=== PATIENT | female | born 1965 | race Caucasian/White ===

== ENCOUNTER 2018-12-19 02:02 | Emergency (ER) | payer MEDICAID ==
[~2018-12-19] VITALS: Ht 149.9 cm; Wt 68.0 kg
[2018-12-19 02:03] VITALS: BP_SYST 143
[2018-12-19] MEDS: MORPHINE 4 MG/ML INJ. SYRINGE IVP ONE (02:25)
[2018-12-19] MEDS: ONDANSETRON HCL 4 MG/2 ML VIAL IVP ONE (02:25)
[2018-12-19] MEDS: NACL 0.9% 1,000 ML IV ONE (02:26)
[2018-12-19 02:32] LABS: BASOPHILS # (AUTO) 0.1 K/uL (0.0-0.2); BASOPHILS % (AUTO) 0.7 % (0.0-2.0); EOSINOPHILS % (AUTO) 0.1 % (0.0-4.0); HEMATOCRIT 40.7 % (36-48); HEMOGLOBIN 13.2 g/dL (12.0-16.0); LYMPHOCYTES # (AUTO) 1.1 K/uL (1.0-5.5); LYMPHOCYTES % (AUTO) 7.1 % (20.5-51.5); MEAN CORPUSCULAR HEMOGLOBIN 28 pg (27-31); MEAN CORPUSCULAR HGB CONC 32 % (32-36); MEAN CORPUSCULAR VOLUME 86 fL (79.0-98.0); MONOCYTES # (AUTO) 0.9 K/uL (0.0-1.0); MONOCYTES % (AUTO) 5.4 % (1.7-9.3); NEUTROPHILS % (AUTO) 86.7 % (40.0-70.0); PLATELET COUNT (AUTO) 335 K/uL (130-430); RED BLOOD CELL COUNT(AUTO) 4.72 MIL/uL (4.2-6.2); RED CELL DISTRIBUTION WIDTH 16.1 % (9.0-15.0); WHITE BLOOD COUNT (AUTO) 16.1 K/uL (4.8-10.8)
[2018-12-19 02:52] LABS: ANION GAP 13 (5-15); CALCIUM 9.8 mg/dL (8.4-11.0); CHLORIDE 102 mmol/L (98-107); GLUCOSE 359 mg/dL (70-99); SODIUM SERUM 140 mmol/L (136-145); UREA NITROGEN, BLOOD 20 mg/dL (8-21)
[2018-12-19 02:59] LABS: ALANINE AMINOTRANSFERASE 31 U/L (12-78); ALBUMIN 3.7 g/dL (3.4-4.8); ASPARTATE AMINOTRANSFERASE 13 U/L (10-37); LIPASE 154 U/L (73-393); TOTAL BILIRUBIN 0.5 mg/dL (0.0-1.0)
[2018-12-19 03:00] LABS: GFR AFRICAN AMERICAN 96 mL/min (>90); POTASSIUM 2.6 mmol/L (3.5-5.1)
[2018-12-19] MEDS: INSULIN REGULAR, HUMAN 10 UNITS/0.1 ML INJ IVP ONE (03:37)
[2018-12-19 03:42] LABS: BILIRUBIN,URINE NEGATIVE (NEGATIVE); BLOOD, URINE NEGATIVE (NEGATIVE); CLARITY/URINE CLEAR (CLEAR); COLOR,URINE YELLOW (YELLOW); GLUCOSE,URINE 3+ (NEGATIVE); KETONES,URINE 2+ (NEGATIVE); LEUKOCYTE ESTERASE ,URINE NEGATIVE (NEGATIVE); NITRITE, URINE NEGATIVE (NEGATIVE); PROTEIN URINE NEGATIVE (NEGATIVE); UROBILINOGEN,URINE 0.2 (0.2-1.0)
[2018-12-19 03:44] LABS: ACETONE, SERUM POSITIVE (NEGATIVE)
[2018-12-19] MEDS: POTASSIUM CHLORIDE 20 MEQ TAB.PRT.SR PO ONE (04:26)
[2018-12-19 05:00] VITALS: BP_SYST 141
== END 2018-12-19 05:00 | disposition home or self-care (01) ==
LOC: SED 02:02
DX: E87.6 Hypokalemia (principal); E11.65 Type 2 diabetes mellitus with hyperglycemia; R10.10 Upper abdominal pain, unspecified; R11.10 Vomiting, unspecified; R19.7 Diarrhea, unspecified; I10 Essential (primary) hypertension; Z90.89 Acquired absence of other organs
CPT/HCPCS: 36415; 74176; 80053; 81003; 82009; 83690; 85025; 96361; 96374; 96375; 99284; J1815; J2270; J2405; J7030

== ENCOUNTER 2019-06-06 17:59 | Emergency (ER) | payer MEDICAID ==
[~2019-06-06] VITALS: Ht 157.5 cm; Wt 68.0 kg
[2019-06-06 18:13] VITALS: BP_SYST 122
--- NOTE | 2019-06-06 18:17 | NUR ---
Patient triaged and placed in waiting room. VSS and patient appears in no acute distress at this time. Accompanied by son, awaiting available bed, and MD notified of need for MSE.
--- NOTE | 2019-06-06 19:24 | NUR ---
Patient to ER bed 4 to gown for evaluation. Side rails up. Report given to Sanford SALAZAR.
--- NOTE | 2019-06-06 19:40 | NUR ---
Pt AAOx4 presents to ED via wheelchair c/o 01/26 pain to L hip s/p trip and fall yesterday. Denies KO. Pain increases when weight on L side. Pt able to move around house with walker. Pt taking ibuprofen with mild relief. NO other injuries/complaints per pt/noted. Will continue to monitor.
--- NOTE | 2019-06-06 19:45 | NUR ---
Pt taken to CT via wheelchair in stable condition
--- NOTE | 2019-06-06 20:00 | NUR ---
Pt to X-ray via W/C.
--- NOTE | 2019-06-06 20:05 | NUR ---
Pt returns from X-ray.
[2019-06-06] MEDS ORDERED: HYDROcodone/ACETAMIN 5-325 MG TAB (NORCO/ VICODIN) PO ONE (20:30)
--- NOTE | 2019-06-06 21:00 | NUR ---
RETURNED FROM CT SCAN OF PELVIS WITHOUT CONSTRAST AND XRAY OF LEFT HIP, STATES PAIN 10/10 ACHY TYPE PAIN, NORCO 5/325MG GIVEN PO, SITTING QUIETLY ON SIDE OF GURNEY WITH SON @ SIDE.
--- NOTE | 2019-06-06 22:47 | NUR ---
Patient given written and verbal discharge instructions and verbalizes understanding. ER MD discussed with patient the results and treatment provided. Patient in stable condition. ID arm band removed. Rx of Stuart and Ibuprofen given. Patient educated on pain management and to follow up with PMD. Pain Scale 4/10. Opportunity for questions provided and answered. Medication side effect fact sheet provided.
[2019-06-06 22:49] VITALS: BP_SYST 129
== END 2019-06-06 22:49 | disposition home or self-care (01) ==
LOC: SED 17:59
DX: S32.512A Fracture of superior rim of left pubis, initial encounter for closed fracture (principal); I10 Essential (primary) hypertension; E11.9 Type 2 diabetes mellitus without complications; W01.0XXA Fall on same level from slipping, tripping and stumbling without subsequent striking against object, initial encounter; Y93.89 Activity, other specified; Y92.89 Other specified places as the place of occurrence of the external cause; Y99.8 Other external cause status
CPT/HCPCS: 72192-TC; 73502; 99284

== ENCOUNTER 2021-04-01 09:31 | Emergency (ER) | payer MEDICAID ==
[~2021-04-01] VITALS: Ht 147.3 cm; Wt 55.8 kg
[2021-04-01 09:48] VITALS: BP_SYST 118
[2021-04-01] MEDS ORDERED: HYDROcodone/ACETAMIN 5-325 MG TAB (NORCO/ VICODIN) PO ONE (11:15)
[2021-04-01] MEDS ORDERED: KETOROLAC TROMETHAMINE 15 MG VIAL IVP ONE (11:15)
[2021-04-01] MEDS ORDERED: NACL 0.9% 1,000 ML IV ONE (11:15)
[2021-04-01 11:52] LABS: BASOPHILS # (AUTO) 0.1 K/uL (0.0-0.2); BASOPHILS % (AUTO) 0.4 % (0.0-2.0); EOSINOPHILS % (AUTO) 0.3 % (0.0-4.0); HEMATOCRIT 32.3 % (36-48); HEMOGLOBIN 10.7 g/dL (12.0-16.0); LYMPHOCYTES # (AUTO) 1.5 K/uL (1.0-5.5); LYMPHOCYTES % (AUTO) 12.5 % (20.5-51.5); MEAN CORPUSCULAR HEMOGLOBIN 30 pg (27-31); MEAN CORPUSCULAR HGB CONC 33 % (32-36); MEAN CORPUSCULAR VOLUME 91 fL (79.0-98.0); MONOCYTES # (AUTO) 0.7 K/uL (0.0-1.0); MONOCYTES % (AUTO) 5.8 % (1.7-9.3); PLATELET COUNT (AUTO) 283 K/uL (130-430); RED BLOOD CELL COUNT(AUTO) 3.57 MIL/uL (4.2-6.2); RED CELL DISTRIBUTION WIDTH 15.2 % (9.0-15.0); WHITE BLOOD COUNT (AUTO) 12.4 K/uL (4.8-10.8)
[2021-04-01 12:04] LABS: CALCIUM 8.9 mg/dL (8.4-11.0); CREATININE 0.48 mg/dL (0.55-1.30); POTASSIUM 3.2 mmol/L (3.5-5.1)
[2021-04-01 12:09] LABS: INR 0.9 (0.8-1.2); PROTHROMBIN TIME 9.4 SECS (9.5-12.5); TOTAL BILIRUBIN 0.6 mg/dL (0.0-1.0)
[2021-04-01] MEDS ORDERED: CLINDAMYCIN HCL 150 MG CAPSULE PO ONE (13:30)
[2021-04-01] MEDS ORDERED: CEPH250C PO (13:36)
[2021-04-01 14:02] VITALS: BP_SYST 118
== END 2021-04-01 14:04 | disposition home or self-care (01) ==
LOC: SED 09:31
DX: L03.113 Cellulitis of right upper limb (principal); E11.9 Type 2 diabetes mellitus without complications
CPT/HCPCS: 36415; 80053; 85025; 85379; 85610; 85730; 93971; 96361; 96374; 99284; J1885; J7030

== ENCOUNTER 2022-06-25 16:27 | Emergency (ER) | payer MEDICAID ==
[~2022-06-25] VITALS: Ht 149.9 cm; Wt 63.5 kg
[~2022-06-25 16:27] MED LIST: CEPH250C PO
[2022-06-25 17:14] VITALS: BP_SYST 142
--- NOTE | 2022-06-25 18:08 | NUR ---
ER at bedside examining patient.
[2022-06-25] MEDS ORDERED: VANCOMYCIN HCL 1,000 MG in NS 250 ML IV ONE (18:15)
[2022-06-25] MEDS ORDERED: VANCOMYCIN HCL 1000 MG/VIAL IV ONE (18:52)
--- NOTE | 2022-06-25 18:54 | NUR ---
IV INSERTED IN RIGHT A/C, 20 GAUGE CATHETER, GOOD BLOOD RETURN NOTED.
--- NOTE | 2022-06-25 19:15 | NUR ---
Received report at this time.
[2022-06-25] MEDS ORDERED: CEPH-548 PO (21:29)
[2022-06-25 21:40] VITALS: BP_SYST 133
--- NOTE | 2022-06-25 21:40 | NUR ---
Patient given written and verbal discharge instructions and verbalizes understanding. ER MD discussed with patient the results and treatment provided. Patient in stable condition. ID arm band removed. IV catheter removed intact and dressing applied, no active bleeding. Rx of cephalexin given. Patient educated on pain management and to follow up with PMD. Opportunity for questions provided and answered.
== END 2022-06-25 21:40 | disposition home or self-care (01) ==
LOC: SED 16:27
DX: L03.113 Cellulitis of right upper limb (principal); R22.31 Localized swelling, mass and lump, right upper limb; E11.9 Type 2 diabetes mellitus without complications; I10 Essential (primary) hypertension; Z79.899 Other long term (current) drug therapy
CPT/HCPCS: 99284; 96365; 87040; 36415; J3370

== ENCOUNTER 2023-02-01 15:23 | Emergency (ER) | payer MEDICAID ==
[~2023-02-01] VITALS: Ht 152.4 cm; Wt 61.2 kg
[~2023-02-01 15:23] MED LIST changes: +CEPH-548 PO
[2023-02-01 15:33] VITALS: BP_SYST 137; PULSE 95; RESP 16; TEMP 96.9; O2SAT 96
[2023-02-01] MEDS ORDERED: MORPHINE 4 MG INJ. 4 MG/ML VIAL IVP ONE (16:00)
[2023-02-01] MEDS ORDERED: NACL 0.9% 1,000 ML IV ONE ×2 (16:00→18:30)
[2023-02-01 16:49] LABS: BASOPHILS % (AUTO) 0.5 % (0.0-2.0); EOSINOPHILS # (AUTO) 0.1 K/uL (0.0-0.4); EOSINOPHILS % (AUTO) 1.5 % (0.0-4.0); HEMATOCRIT 29.8 % (36-48); HEMOGLOBIN 9.8 g/dL (12.0-16.0); LYMPHOCYTES # (AUTO) 1.3 K/uL (1.0-5.5); MEAN CORPUSCULAR HEMOGLOBIN 27 pg (27-31); MEAN CORPUSCULAR HGB CONC 33 % (32-36); MEAN CORPUSCULAR VOLUME 83 fL (79.0-98.0); MONOCYTES # (AUTO) 0.6 K/uL (0.0-1.0); MONOCYTES % (AUTO) 6.4 % (1.7-9.3); NEUTROPHILS # (AUTO) 6.9 K/uL (1.8-7.7); NEUTROPHILS % (AUTO) 76.6 % (40.0-70.0); PLATELET COUNT (AUTO) 525 K/uL (130-430); RED BLOOD CELL COUNT(AUTO) 3.58 MIL/uL (4.2-6.2); RED CELL DISTRIBUTION WIDTH 16.6 % (9.0-15.0)
[2023-02-01 17:15] LABS: CALCIUM 8.8 mg/dL (8.4-11.0); CREATININE 0.45 mg/dL (0.55-1.30); POTASSIUM 3.6 mmol/L (3.5-5.1)
[2023-02-01 17:20] LABS: ALBUMIN 3.4 g/dL (3.4-4.8); TOTAL BILIRUBIN 0.5 mg/dL (0.0-1.0); TOTAL PROTEIN, SERUM 6.7 g/dL (6.4-8.3)
[2023-02-01] MEDS ORDERED: PIPERACILLIN/TAZO 3.375 GM in NS 50 ML IV ONE (18:15)
[2023-02-01] MEDS ORDERED: PIPERACILLIN/TAZOBACTAM 3.375 GM/VIAL (ZOSYN) IV ONE (18:26)
[2023-02-01 20:06] LABS: BILIRUBIN,URINE 1+ (NEGATIVE); BLOOD, URINE NEGATIVE (NEGATIVE); COLOR,URINE YELLOW (YELLOW); GLUCOSE,URINE NEGATIVE (NEGATIVE); KETONES,URINE TRACE (NEGATIVE); LEUKOCYTE ESTERASE ,URINE TRACE (NEGATIVE); NITRITE, URINE NEGATIVE (NEGATIVE); PH,URINE 5.5 (5.0-8.0); PROTEIN URINE TRACE (NEGATIVE)
[2023-02-01 20:22] LABS: CLARITY/URINE HAZY (CLEAR)
[2023-02-01 20:31] LABS: BACTERIA,URINE FEW /HPF (None Seen); RBC,URINE 0-3 /HPF (0-3)
[2023-02-01 20:32] LABS: CALCIUM OXALATE CRYSTALS,UR 0-10 /HPF (None Seen); COARSE GRANULAR CASTS,URINE 0-10 /LPF (None Seen); MUCUS,URINE 3+ /LPF (None Seen)
[2023-02-01] MEDS ORDERED: MAG-123 PO (20:54)
[2023-02-01] MEDS ORDERED: FAMO-132 PO (20:54)
[2023-02-01 21:19] VITALS: BP_SYST 133; PULSE 98; RESP 18; TEMP 97.6; O2SAT 98
== END 2023-02-01 21:19 | disposition home or self-care (01) ==
LOC: SED 15:23
DX: K29.70 Gastritis, unspecified, without bleeding (principal); R10.13 Epigastric pain; R10.11 Right upper quadrant pain; R10.12 Left upper quadrant pain; E11.9 Type 2 diabetes mellitus without complications; I10 Essential (primary) hypertension; Z79.899 Other long term (current) drug therapy
CPT/HCPCS: 99285; 74176; 96365; 96361; 96375; 80053; 81000; 82962; 83690; 85025; 87040; 87086; 36415; 76376; 83605; J2543; J2270; J7030

== ENCOUNTER 2023-02-11 11:26 | Emergency (ER) | payer MEDICAID ==
[~2023-02-11] VITALS: Ht 162.6 cm; Wt 61.2 kg
[~2023-02-11 11:26] MED LIST changes: +FAMO-132 PO; +MAG-123 PO
[2023-02-11 11:49] VITALS: BP_SYST 139; PULSE 108; RESP 18; TEMP 97.4; O2SAT 100
[2023-02-11] MEDS ORDERED: MORPHINE 4 MG INJ. 4 MG/ML VIAL IVP ONE (12:15)
[2023-02-11] MEDS ORDERED: ONDANSETRON HCL 4 MG/2 ML VIAL IVP ONE (12:15)
[2023-02-11 12:42] LABS: BASOPHILS # (AUTO) 0.1 K/uL (0.0-0.2); EOSINOPHILS # (AUTO) 0.1 K/uL (0.0-0.4); EOSINOPHILS % (AUTO) 1.4 % (0.0-4.0); HEMATOCRIT 30.7 % (36-48); HEMOGLOBIN 10.1 g/dL (12.0-16.0); LYMPHOCYTES # (AUTO) 1.8 K/uL (1.0-5.5); LYMPHOCYTES % (AUTO) 24.9 % (20.5-51.5); MEAN CORPUSCULAR HEMOGLOBIN 27 pg (27-31); MEAN CORPUSCULAR HGB CONC 33 % (32-36); MEAN CORPUSCULAR VOLUME 84 fL (79.0-98.0); MONOCYTES # (AUTO) 0.6 K/uL (0.0-1.0); MONOCYTES % (AUTO) 7.7 % (1.7-9.3); NEUTROPHILS # (AUTO) 4.6 K/uL (1.8-7.7); PLATELET COUNT (AUTO) 485 K/uL (130-430); RED BLOOD CELL COUNT(AUTO) 3.68 MIL/uL (4.2-6.2); RED CELL DISTRIBUTION WIDTH 16.3 % (9.0-15.0); WHITE BLOOD COUNT (AUTO) 7.1 K/uL (4.8-10.8)
[2023-02-11 13:09] LABS: CALCIUM 9.2 mg/dL (8.4-11.0); CREATININE 0.52 mg/dL (0.55-1.30); POTASSIUM 3.5 mmol/L (3.5-5.1)
[2023-02-11 13:14] LABS: ALBUMIN 3.4 g/dL (3.4-4.8); TOTAL BILIRUBIN 0.4 mg/dL (0.0-1.0)
[2023-02-11 13:14] LABS: BILIRUBIN,URINE 1+ (NEGATIVE); BLOOD, URINE TRACE (NEGATIVE); CLARITY/URINE SLIGHTLY HAZY (CLEAR); COLOR,URINE YELLOW (YELLOW); GLUCOSE,URINE NEGATIVE (NEGATIVE); KETONES,URINE NEGATIVE (NEGATIVE); LEUKOCYTE ESTERASE ,URINE 2+ (NEGATIVE); NITRITE, URINE NEGATIVE (NEGATIVE); PROTEIN URINE 2+ (NEGATIVE); UROBILINOGEN,URINE 0.2 (0.2-1.0)
[2023-02-11 13:16] LABS: BACTERIA,URINE FEW /HPF (None Seen)
[2023-02-11 13:17] LABS: HYALINE CASTS, URINE 0-10 /LPF (None Seen)
[2023-02-11] MEDS ORDERED: cefTRIAXone 1 GM IVPB PREMIX 50 ML IV ONE (13:45)
[2023-02-11] MEDS ORDERED: NITR-85 PO (15:34)
[2023-02-11 15:46] VITALS: BP_SYST 139; PULSE 108; RESP 18; TEMP 97.4; O2SAT 100
== END 2023-02-11 15:44 | disposition home or self-care (01) ==
LOC: SED 11:26
DX: N39.0 Urinary tract infection, site not specified (principal); R10.31 Right lower quadrant pain; R11.0 Nausea; E11.9 Type 2 diabetes mellitus without complications; I10 Essential (primary) hypertension; Z79.899 Other long term (current) drug therapy
CPT/HCPCS: 99285; 96365; 76700; 96375; 80053; 81000; 82150; 83690; 85025; 87040; 36415; 83605; J0696; J2405; J2270